=== PATIENT | female | born 1975 | race Caucasian/White ===

== ENCOUNTER 2019-11-13 06:44 | Emergency (ER) | payer BC, SELFPAY ==
[2019-11-13] MEDS ORDERED: Adacel (T-DAP) 0.5 ML SYRINGE ONE (07:13)
== END 2019-11-13 07:20 | disposition home or self-care (01) ==
LOC: BURERS 06:44
DX: S01.01XA Laceration without foreign body of scalp, initial encounter (principal); Z23 Encounter for immunization; W01.198A Fall on same level from slipping, tripping and stumbling with subsequent striking against other object, initial encounter; Y93.A1 Activity, exercise machines primarily for cardiorespiratory conditioning
CPT/HCPCS: 12001; 90471; 90715